=== PATIENT | female | born 1960 | race Caucasian/White ===

== ENCOUNTER 2020-04-01 08:11 | Day surgery (SDC) | payer BC ==
[2020-04-01] VITALS (10 sets, daily range): BP systolic 101–143; BP diastolic 63–91
[~2020-04-01] VITALS: Ht 172.7 cm; Wt 68.1 kg
[2020-04-01] MEDS ORDERED: normal saline 1000ml 1,000 ML IV PRN (08:40)
[2020-04-01] MEDS ORDERED: albumin 25% 100mL bottle x 1 IV PRN (08:40)
[2020-04-01] MEDS ORDERED: THY60T PO (09:25)
[2020-04-01] MEDS ORDERED: HYDR-4353 PO (09:26)
== END 2020-04-01 12:00 | disposition home or self-care (01) ==
LOC: SSTAY O 08:11
PROVIDERS: ATTEND Radiology Diagnostic Radiology
DX: R18.8 Other ascites (principal); C78.6 Secondary malignant neoplasm of retroperitoneum and peritoneum; E03.9 Hypothyroidism, unspecified; Z72.89 Other problems related to lifestyle; Z79.899 Other long term (current) drug therapy
CPT/HCPCS: 49083; P9047

== ENCOUNTER 2020-04-09 08:50 | Day surgery (SDC) | payer BC ==
[~2020-04-09] VITALS: Ht 172.7 cm; Wt 66.4 kg
[~2020-04-09 08:50] MED LIST: HYDR-4353 PO; THY60T PO
[2020-04-09] MEDS ORDERED: normal saline 1000ml 1,000 ML IV PRN (09:20)
[2020-04-09 09:23] VITALS: BP 126/83
[2020-04-09 10:05] VITALS: BP 116/76
== END 2020-04-09 10:10 | disposition home or self-care (01) ==
LOC: SSTAY O 08:50
PROVIDERS: ATTEND Radiology Vascular & Interventional Radiology
DX: R18.8 Other ascites (principal); R14.0 Abdominal distension (gaseous); Z98.890 Other specified postprocedural states; Z79.899 Other long term (current) drug therapy
CPT/HCPCS: 76705

== ENCOUNTER 2020-04-22 11:24 | Day surgery (SDC) | payer BC ==
[~2020-04-22] VITALS: Ht 172.7 cm; Wt 68.1 kg
[2020-04-22] VITALS (7 sets, daily range): BP systolic 108–144; BP diastolic 66–85
[2020-04-22] MEDS ORDERED: PER5325T PO (11:51)
[2020-04-22] MEDS ORDERED: normal saline 1000ml 1,000 ML IV SCH (11:55)
[2020-04-22 12:42] LABS: BASOPHILS % (AUTO) 0.5 % (0-1); EOSINOPHILS % (AUTO) 0.6 % (0-6); HEMATOCRIT 35.7 % (35.0-45.0); HEMOGLOBIN 11.5 g/dl (12.0-16.0); LYMPHOCYTES # (AUTO) 0.7 X10'3 (1.1-4.8); LYMPHOCYTES % (AUTO) 8.8 % (21-51); MEAN CORPUSCULAR HEMOGLOBIN 27.8 PG (27.0-31.0); MEAN CORPUSCULAR HGB CONC 32.2 g/dL (33.0-36.5); MEAN CORPUSCULAR VOLUME 86.4 FL (78-98); MEAN PLATELET VOLUME 7.9 FL (7.4-10.4); MONOCYTES # (AUTO) 0.7 X10'3 (0-0.9); MONOCYTES % (AUTO) 8.9 % (2-12); NEUTROPHILS # (AUTO) 6.1 X10'3 (1.8-7.7); NEUTROPHILS % (AUTO) 81.2 % (42-75); PLATELET COUNT 399 X10'3 (140-440); RED BLOOD COUNT 4.13 X10'6 (4.20-5.60); WHITE BLOOD COUNT 7.5 X10'3 (4.5-11.0)
[2020-04-22 12:51] LABS: ALBUMIN 2.2 G/DL (3.4-5.0); ANION GAP 13 (8-16); BLOOD UREA NITROGEN 8 MG/DL (7-18); BUN/CREATININE RATIO 11.4 (6.6-38.0); CALCIUM 7.8 MG/DL (8.5-10.1); CHLORIDE 102 MMOL/L (99-107); GLUCOSE 79 MG/DL (70-104); POTASSIUM 3.8 MMOL/L (3.5-5.1); SODIUM 138 MMOL/L (135-145); TOTAL CARBON DIOXIDE 23.1 MMOL/L (24-32); eGFR 85 ML/MIN
[2020-04-22] MEDS ORDERED: LIDOcaine 1%/PF 5ML 10 MG/ML VIAL ONE (13:07)
[2020-04-22] MEDS ORDERED: midazolam 2 mg/2 ml injection ONE ×2 (13:07→13:33)
[2020-04-22] MEDS ORDERED: fentaNYL/PF 50MCG/1 ML 2ML syringe ONE (13:07)
[2020-04-22] MEDS ORDERED: heparin sodium, porcine/PF 100unit/ml 5ML syringe ONE (13:07)
== END 2020-04-22 15:05 | disposition home or self-care (01) ==
LOC: SSTAY O 11:24
PROVIDERS: ATTEND Radiology Vascular & Interventional Radiology
DX: C56.9 Malignant neoplasm of unspecified ovary (principal); Z79.899 Other long term (current) drug therapy; Z11.59 Encounter for screening for other viral diseases; Z79.01 Long term (current) use of anticoagulants
CPT/HCPCS: 36415; 36561; 76937; 77001; 80048; 85025; 85610; 99152; C1769; C1788; C1894; J1642; J2250; J3010; J7030; U0003; 99153

== ENCOUNTER 2020-04-27 07:32 | Day surgery (SDC) | payer BC ==
[2020-04-27] VITALS (9 sets, daily range): BP systolic 113–127; BP diastolic 60–76
[~2020-04-27] VITALS: Ht 172.7 cm; Wt 67.7 kg
[~2020-04-27 07:32] MED LIST changes: -HYDR-4353 PO; +PER5325T PO
[2020-04-27] MEDS ORDERED: albumin 25% 100mL bottle x 1 IV PRN (08:05)
[2020-04-27] MEDS ORDERED: normal saline 1000ml 1,000 ML IV SCH (08:05)
== END 2020-04-27 10:30 | disposition home or self-care (01) ==
LOC: SSTAY O 07:32
PROVIDERS: ATTEND Radiology Diagnostic Radiology
DX: R18.8 Other ascites (principal); Z98.890 Other specified postprocedural states; Z79.899 Other long term (current) drug therapy
CPT/HCPCS: 49083; P9047